=== PATIENT | female | born 1985 | race Caucasian/White ===

== ENCOUNTER 2017-09-09 11:30 | Inpatient (IN) | payer BC ==
[2017-09-09] MEDS: LACTATED RINGER'S 1,000 ML IV* (12:29)
[2017-09-09] MEDS ORDERED: CARBOPROST 250 MCG INJ IM ×3 (12:30→23:00)
[2017-09-09] MEDS ORDERED: OXYTOCIN 30 UNITS/LR 500 ML IV ×6 (12:30→23:00)
[2017-09-09] MEDS ORDERED: METHYLERGONOVINE 0.2 MG INJ IM ×3 (12:30→23:00)
[2017-09-09] MEDS ORDERED: MISOPROSTOL 200 MCG TAB PR ×3 (12:30→23:00)
[2017-09-09] MEDS ORDERED: LIDOCAINE 1% (MPF) 30 ML INJ INJ ×2 (12:30)
[2017-09-09 12:46] LABS: ADD MAN DIFF? NO
[2017-09-09] MEDS: ACETAMINOPHEN 325 MG TAB PO (12:49)
[2017-09-09] MEDS: MAGNESIUM SULFATE 4 GM/100 ML 100 ML IV (12:50)
[2017-09-09 12:52] LABS: WHITE BLOOD COUNT 10.1 10^3/ul (4.8-10.8)
[2017-09-09 12:52] LABS: BASOPHIL # 0.1 10^3/ul (0.0-0.1); BASOPHILS % 0.6 % (0.0-2.0); EOSINOPHILS # 0.2 10^3/ul (0.0-0.5); EOSINOPHILS % 2.3 % (0.0-7.0); HEMATOCRIT 34.1 % (37.0-47.0); HEMOGLOBIN 10.5 g/dl (12.0-16.0); LYMPHOCYTES # 2.1 10^3/ul (0.8-2.9); LYMPHOCYTES % 20.6 % (15.0-51.0); MEAN CORPUSCULAR HEMOGLOBIN 23.2 pg (29.0-33.0); MEAN CORPUSCULAR HGB CONC 30.8 g/dl (32.0-37.0); MEAN CORPUSCULAR VOLUME 75.4 fl (82.0-101.0); MEAN PLATELET VOLUME 10.7 fl (7.4-10.4); MONOCYTE # 0.7 10^3/ul (0.3-0.9); MONOCYTES % 6.4 % (0.0-11.0); NEUTROPHILS % 69.4 % (39.0-77.0); PLATELET COUNT 205 10^3/UL (140-415); RED BLOOD COUNT 4.52 10^6/ul (4.20-5.40); RED CELL DISTRIBUTION WIDTH 15.6 % (11.5-14.5)
[2017-09-09 12:53] LABS: ADD UMIC YES; UR ASCORBIC ACID NEGATIVE (NEGATIVE); UR BILIRUBIN (Dip) NEGATIVE (NEGATIVE); UR BLOOD (Dip) NEGATIVE (NEGATIVE); UR CLARITY CLEAR (CLEAR); UR COLOR YELLOW (YELLOW); UR GLUCOSE (Dip) NEGATIVE (NEGATIVE); UR KETONES (Dip) NEGATIVE (NEGATIVE); UR LEUKOCYTE ESTERASE (Dip) NEGATIVE Leu/ul (NEGATIVE); UR NITRITE (Dip) NEGATIVE (NEGATIVE); UR RBC 1 /HPF (0-5); UR SPECIFIC GRAVITY (Dip) 1.013 (1.003-1.030); UR SQUAMOUS EPITHELIAL CELL FEW /HPF (FEW); UR TOTAL PROTEIN (Dip) 1+ mg/dl (NEGATIVE); UR UROBILINOGEN (Dip) NEGATIVE (NEGATIVE); UR WBC 1 /HPF (0-5)
[2017-09-09 13:03] LABS: UR BACTERIA FEW /HPF (NONE SEEN)
[2017-09-09 13:10] LABS: INR 0.86; PROTIME 11.8 Sec (11.9-14.9); PT RATIO 0.9
[2017-09-09 13:16] LABS: ALANINE AMINOTRANSFERASE 24 IU/L (13-69); ALBUMIN 3.4 g/dl (3.3-4.9); ALBUMIN/GLOBULIN RATIO 0.94; ALKALINE PHOSPHATASE 237 IU/L (42-121); ANION GAP 15 (8-16); ASPARTATE AMINO TRANSFERASE 20 IU/L (15-46); BILIRUBIN,INDIRECT 0.2 mg/dl (0-1.1); BILIRUBIN,TOTAL 0.2 mg/dl (0.2-1.3); BLOOD UREA NITROGEN 7 mg/dl (7-20); CALCIUM 8.9 mg/dl (8.4-10.2); CARBON DIOXIDE 21 mmol/L (21-31); CHLORIDE 110 mmol/L (97-110); CREATININE 0.53 mg/dl (0.44-1.00); GLUCOSE 83 mg/dl (70-220); POTASSIUM 4.2 mmol/L (3.5-5.1); SODIUM 142 mmol/L (135-144)
[2017-09-09 13:16] LABS: URIC ACID 2.7 mg/dl (3.1-7.9)
[2017-09-09] MEDS: MAGNESIUM SULFATE 20 GM/500 ML 500 ML IV ×2 (13:29→23:37)
[2017-09-09 13:47] LABS: ALANINE AMINOTRANSFERASE 20 IU/L (13-69); ALBUMIN 3.5 g/dl (3.3-4.9); ALKALINE PHOSPHATASE 245 IU/L (42-121); ASPARTATE AMINO TRANSFERASE 22 IU/L (15-46); TOTAL PROTEIN 6.9 g/dl (6.1-8.1)
[2017-09-09 13:48] LABS: LACTATE DEHYDROGENASE 455 IU/L (313-618); PHOSPHORUS 4.8 mg/dl (2.5-4.9)
[2017-09-09 14:18] LABS: HEPATITIS B SURFACE ANTIGEN NEGATIVE (NEGATIVE)
[2017-09-09 14:28] LABS: FIBRIN SPLIT PRODUCT <10 ug/ml (<10)
[2017-09-09 15:19] LABS: RAPID PLASMA REAGIN NONREACTIVE (NR)
[2017-09-09 18:26] LABS: MAGNESIUM 4.5 mg/dl (1.7-2.5)
[2017-09-09] MEDS: LABETALOL HCL 20MG INJ IV (19:45)
[2017-09-09] MEDS ORDERED: morphine SULFATE/PF (10 MG/10 ML) INJ (20:13)
[2017-09-09] MEDS ORDERED: METOCLOPRAMIDE 10 MG INJ (20:15)
[2017-09-09] MEDS ORDERED: KETOROLAC 30 MG INJ (20:15)
[2017-09-09] MEDS ORDERED: ONDANSETRON 4 MG INJ (20:15)
[2017-09-09] MEDS ORDERED: BUPIVACAINE 0.75%/DEXT (SPINAL) 2 ML INJ (20:15)
[2017-09-09] MEDS ORDERED: CEFAZOLIN 1 GM INJ (20:26)
[2017-09-09] MEDS ORDERED: EPHEDrine 25 MG/5 ML SYG (20:32)
[2017-09-09] MEDS ORDERED: morphine (1 MG/ML) 10ML SYRINGE IV ×3 (22:00)
[2017-09-09] MEDS ORDERED: morphine 2 MG INJ IV ×3 (22:00)
[2017-09-09] MEDS ORDERED: ONDANSETRON 4 MG INJ IV ×2 (22:00)
[2017-09-09] MEDS ORDERED: NALOXONE (0.4 MG/ML) INJ IV (22:00)
[2017-09-09] MEDS ORDERED: DIPHENHYDRAMINE 50 MG INJ IV (22:00)
[2017-09-09] MEDS: DIPHENHYDRAMINE 50 MG INJ IV (22:56)
[2017-09-09] MEDS: CEFAZOLIN 2 GM/50 ML (PMX) 50 ML IVPB (22:56)
[2017-09-09] MEDS ORDERED: LANOLIN 7 GM TUBE TOP (23:00)
[2017-09-09] MEDS: KETOROLAC 30 MG INJ IV (23:00)
[2017-09-09] MEDS ORDERED: METHYLERGONOVINE 0.2 MG TAB PO (23:00)
[2017-09-10] MEDS: OXYTOCIN 30 UNITS/LR 500 ML IV (00:36)
[2017-09-10 01:41] LABS: MAGNESIUM 5.1 mg/dl (1.7-2.5)
[2017-09-10] MEDS: CEFAZOLIN 2 GM/50 ML (PMX) 50 ML IVPB (04:13)
[2017-09-10] MEDS ORDERED: CEFAZOLIN 1 GM/50 ML (PMX) 50 ML IVPB (06:00)
[2017-09-10 06:20] LABS: ADD MAN DIFF? NO
[2017-09-10 06:31] LABS: BASOPHIL # 0.1 10^3/ul (0.0-0.1); BASOPHILS % 0.4 % (0.0-2.0); EOSINOPHILS % 0.2 % (0.0-7.0); HEMOGLOBIN 10.3 g/dl (12.0-16.0); LYMPHOCYTES # 1.3 10^3/ul (0.8-2.9); LYMPHOCYTES % 9.5 % (15.0-51.0); MEAN CORPUSCULAR HEMOGLOBIN 22.9 pg (29.0-33.0); MEAN CORPUSCULAR HGB CONC 30.3 g/dl (32.0-37.0); MEAN CORPUSCULAR VOLUME 75.6 fl (82.0-101.0); MEAN PLATELET VOLUME 11.1 fl (7.4-10.4); MONOCYTE # 0.7 10^3/ul (0.3-0.9); NEUTROPHIL # 11.2 10^3/ul (1.6-7.5); NEUTROPHILS % 84.4 % (39.0-77.0); PLATELET COUNT 188 10^3/UL (140-415); RED CELL DISTRIBUTION WIDTH 15.4 % (11.5-14.5)
[2017-09-10 06:31] LABS: WHITE BLOOD COUNT 13.3 10^3/ul (4.8-10.8)
[2017-09-10] MEDS: KETOROLAC 30 MG INJ IV ×2 (06:35→16:19)
[2017-09-10 07:04] LABS: MAGNESIUM 5.2 mg/dl (1.7-2.5)
[2017-09-10] MEDS: DEXTROSE 5%-LR 1,000 ML IV (07:46)
[2017-09-10] MEDS: SENNA/DOCUSATE NA (8.6MG/50MG) TAB PO ×2 (09:00→21:50)
[2017-09-10] MEDS: OXYCODONE/ACETAMINOPHEN (5/325) TAB PO ×2 (09:07→21:51)
[2017-09-10 09:41] LABS: RUBELLA ANTIBODY - IGG 1.01 index
[2017-09-10] MEDS: MAGNESIUM SULFATE 20 GM/500 ML 500 ML IV (10:42)
[2017-09-10] MEDS: LACTATED RINGER'S 1,000 ML IV (11:25)
[2017-09-10 13:20] LABS: MAGNESIUM 5.4 mg/dl (1.7-2.5)
[2017-09-10] MEDS: IBUPROFEN 800 MG TAB PO (21:50)
[2017-09-11] MEDS: LACTATED RINGER'S 1,000 ML IV ×2 (00:50→14:10)
[2017-09-11] MEDS: OXYCODONE/ACETAMINOPHEN (5/325) TAB PO ×3 (04:25→19:56)
[2017-09-11] MEDS: IBUPROFEN 800 MG TAB PO ×3 (06:35→22:19)
[2017-09-11] MEDS: SENNA/DOCUSATE NA (8.6MG/50MG) TAB PO ×2 (09:55→19:57)
[2017-09-12] MEDS: OXYCODONE/ACETAMINOPHEN (5/325) TAB PO ×8 (04:39→22:00)
[2017-09-12] MEDS: IBUPROFEN 800 MG TAB PO ×3 (05:44→22:07)
[2017-09-12] MEDS: SENNA/DOCUSATE NA (8.6MG/50MG) TAB PO ×2 (09:46→20:56)
[2017-09-12] MEDS: MEASLES,MUMPS,RUBELLA VACCINE INJ SC* (09:56)
[2017-09-12 12:01] LABS: RUBELLA ANTIBODY - IGM <20.00 AU/mL
[2017-09-12] MEDS: DIPHTH/TET/ACEL PERTUSS (ADULT) 0.5 ML VIAL IM* (16:39)
[2017-09-13] MEDS: OXYCODONE/ACETAMINOPHEN (5/325) TAB PO ×4 (02:16→11:09)
[2017-09-13] MEDS: IBUPROFEN 800 MG TAB PO (05:40)
[2017-09-13] MEDS: SENNA/DOCUSATE NA (8.6MG/50MG) TAB PO (09:11)
== END 2017-09-13 16:01 | disposition home or self-care (01) | DRG 765 ==
LOC: L-D 11:30 → PP1 09-10 00:05 → L-D 20:09
PROC: 10D00Z1 Extraction of Products of Conception, Low, Open Approach (ICD-10-PCS; principal; 2017-09-09 20:00)
PROC: 0UB70ZZ Excision of Bilateral Fallopian Tubes, Open Approach (ICD-10-PCS; 2017-09-09 20:00)
DX: O14.14 Severe pre-eclampsia complicating childbirth (principal); Z68.41 Body mass index [BMI] 40.0-44.9, adult; O34.211 Maternal care for low transverse scar from previous cesarean delivery; O99.214 Obesity complicating childbirth; E66.01 Morbid (severe) obesity due to excess calories; Z37.0 Single live birth; Z3A.36 36 weeks gestation of pregnancy; Z30.2 Encounter for sterilization
CPT/HCPCS: 80053; 80076; 81001; 82962; 83615; 83735; 84100; 84560; 85025; 85362; 85384; 85610; 85730; 86592; 86762; 86850; 86900; 86901; 87340; 88302; 90715; 99464